=== PATIENT | female | born 1985 | race Caucasian/White ===

== ENCOUNTER 2020-05-07 21:17 | Emergency (ER) | payer OTHER ==
[~2020-05-07] VITALS: Ht 167.6 cm; Wt 81.6 kg
== END 2020-05-07 22:39 | disposition home or self-care (01) ==
LOC: ER 21:17
DX: N39.0 Urinary tract infection, site not specified (principal); N94.6 Dysmenorrhea, unspecified; N20.0 Calculus of kidney

== ENCOUNTER 2024-05-27 17:41 | Emergency (ER) | payer OTHER ==
[~2024-05-27] VITALS: Ht 165.1 cm; Wt 77.1 kg
[2024-05-27] MEDS ORDERED: hydrOXYzine PAMOATE 25 MG CAPSULE PO STA (20:14)
[2024-05-27 20:53] LABS: HEMATOCRIT 35.2 % (36.0-45.00); HEMOGLOBIN 11.8 g/dL (12.0-15.00); MEAN CELL VOLUME 87.3 fL (80.00-100.00); MEAN CORPUSCULAR HEMOGLOBIN 29.4 pg (27.00-32.0); MEAN CORPUSCULAR HGB CONC 33.7 g/dl (32.0-36.0); PLATELET COUNT 373 K/uL (150-450); RED BLOOD COUNT 4.03 M/uL (4.00-6.00); RED CELL DISTRIBUTION WIDTH 14.1 % (11.5-14.5)
[2024-05-27 21:17] LABS: CREATININE SERUM 0.67 mg/dL (0.55-1.02); GFR 97.99; POTASSIUM 3.89 mEq/L (3.5-5.1)
== END 2024-05-27 22:49 | disposition home or self-care (01) ==
LOC: ER 17:44
PROVIDERS: General Practice
DX: R07.9 Chest pain, unspecified (principal); Z88.8 Allergy status to other drugs, medicaments and biological substances